=== PATIENT | female | born 1940 | race Caucasian/White ===

== ENCOUNTER 2016-07-12 20:09 | Inpatient (IN) | payer OTHER ==
[~2016-07-12] VITALS: Ht 162.6 cm; Wt 113.7 kg
[~2016-07-12 20:09] MED LIST: ACTOS30 MG PO; ADVAIR 250/501 DISK IH; ADVAIR 500-501 EACH IH; ADVAIR 500/501 DISK IH; ALBUTEROL IH; ALBUTEROL17 GM IH; ATORVASTATIN CA40 MG PO; AVELOX400 MG PO; Advair HFA 115/21 IH; Advair HFA 230/21 IH; Ambien PO; BACTRIM,SEPT1 TABLET PO; BYSTOLIC5 MG PO; Bystolic PO; CARDIZEM CD120 MG PO; CARTIA XT120 MG PO; CARVEDILOL6.25 MG PO; CATAPRES0.2 MG PO; CELEBREX100 MG PO; CELEBREX200 MG PO; CELEBREX50 MG PO; CLONIDINE HCL0.2 MG PO; CRESTOR10 MG PO; CYMBALTA30 MG PO; CYMBALTA60 MG PO; Cardizem CD,Cartia X PO; Colace PO; Cymbalta PO; DILTIAZEM 24HR120 MG PO; DOCUSATE SODIU100 MG PO; DuoNeb IH; ECOTRIN325 MG PO; FERROUS SULFAT325 MG PO; FISH OIL SOFTG1 EACH PO; GABAPENTIN300 MG PO; GABAPENTIN600 MG PO; GABAPENTIN800 MG PO; GLUCOPHAGE XR,500 MG PO; GLUCOPHAGE500 MG PO; HYDROCHLOROTHIA50 MG PO; HYDROCODON-ACE1 EAC7 PO; JANUMET 50/11 TABLET PO; JANUMET PO; JANUMET XR 50-1 EAC1 PO; Januvia PO; KEFLEX500 MG PO; KOMBIGLYZE XR1 EAC2 PO; LASIX20 MG/2 ML IV; LEVALBUTER1.25 MG/0. IH; LIPITOR20 MG PO; LIPITOR40 MG PO; LORATADINE10 M2 PO; LOVENOX40 MG/0.4 SC; Levaquin PO; Lovenox SC; MEGA MULTI FOR1 EACH; MEGA MULTI FOR1 EACH PO; MEGA RED PO; METFORMIN HCL500 MG PO; METFORMIN HCL750 MG PO; MONISTAT VG; MULTIVITAMIN1 EAC1 PO; MULTIVITAMIN1 EAC2 PO; Maxipime IV; NEURONTIN300 MG PO; NEURONTIN800 MG PO; Neurontin PO; PERCOCET 10/1 TABLET PO; PRANDIN0.5 MG PO; PRILOSEC40 MG PO; PROAIR HFA8.5 GM IH; SINGULAIR10 MG PO; Singulair PO; TEKTURNA300 MG PO; THEOPHYLLINE A200 M1 PO; THERAGRAN1 TABLET PO; Theragran PO; VENTOLIN HFA18 GM IH; Vancomycin IV; XOPENEX HF200 INHALA IH; XOPENEX0.63 MG/3 IH; [UNRECOGNIZED DRUG - OTHER]; [UNRECOGNIZED DRUG - OTHER] PO; [UNRECOGNIZED DRUG - REMARK]; celeBREX PO; predniSONE PO
[2016-07-12 21:24] LABS: EOSINOPHIL (%) 1.4 % (0-5); EOSINOPHIL COUNT 0.2 K/uL (0-0.3); HEMATOCRIT 44.8 % (36.0-46.0); IMMATURE GRANULOCYTE (%) 0.2 % (0.0-0.7); IMMATURE GRANULOCYTE COUNT 0.3 K/uL; LYMPHOCYTE COUNT 1.9 K/uL (1.0-2.8); MCH 27.9 PG (29.0-34.0); MCHC 32.6 G/DL (30.0-36.0); MCV 85.7 FL (83-99); MEAN PLAT.VOLUME 9.3 uM^3 (9.5-12.4); MONOCYTE (%) 5.1 % (3-12); MONOCYTE COUNT 0.8 K/uL (0-0.8); NEUTROPHIL (%) 80.1 % (45-76); NEUTROPHIL COUNT 11.8 K/uL (1.8-6.4); PLATELET COUNT 337 K/uL (156-360); RBC DIS.WIDTH-CV 13.6 % (11.8-14.6); RBC DIS.WIDTH-SD 41.9 % (39-53); RED BLOOD COUNT 5.23 M/uL (3.80-5.20); WHITE BLOOD COUNT 14.8 K/uL (4.1-10.2)
[2016-07-12 21:40] LABS: CHLORIDE 104 mEq/L (99-109); POTASSIUM 4.2 mEq/L (3.7-5.4); SODIUM 141 mEq/L (136-147)
[2016-07-12 21:42] LABS: GLUCOSE 135 mg/dL (70-99)
[2016-07-12 21:43] LABS: ANION GAP 12 MEQ/L (2-14)
[2016-07-12 21:46] LABS: GFR ESTIMATE (CALCULATED) > 59 mL/min/; TROP-I INTERPRETATION NEGATIVE; TROPONIN-I < 0.01 ng/mL (0.0-0.30); UREA NITROGEN (BUN) 13 mg/dL (9-23)
[2016-07-12] MEDS ORDERED: ATORVASTATIN CA80 MG PO (23:44)
[2016-07-12] MEDS ORDERED: BYSTOLIC10 MG PO (23:45)
[2016-07-12] MEDS ORDERED: BREO ELLIPTA 21 EACH IH (23:46)
[2016-07-12] MEDS ORDERED: IRBESARTAN150 MG PO (23:46)
[2016-07-13] VITALS (7 sets, daily range): BP systolic 113–197; BP diastolic 53–95
[2016-07-13 06:40] LABS: POINT-OF-CARE METER ID UU13113717
[2016-07-13 17:02] LABS: POINT-OF-CARE METER ID UU13113717
[2016-07-14 04:08] VITALS: BP 122/56
[2016-07-14 06:11] LABS: EOSINOPHIL (%) 0 % (0-5); IMMATURE GRANULOCYTE (%) 0.3 % (0.0-0.7); LYMPHOCYTE COUNT 0.9 K/uL (1.0-2.8); MCH 27.8 PG (29.0-34.0); MCHC 31.6 G/DL (30.0-36.0); MCV 87.9 FL (83-99); MONOCYTE (%) 1.7 % (3-12); MONOCYTE COUNT 0.2 K/uL (0-0.8); NEUTROPHIL (%) 91.2 % (45-76); NEUTROPHIL COUNT 11.8 K/uL (1.8-6.4); PLATELET COUNT 284 K/uL (156-360); RBC DIS.WIDTH-SD 44.6 % (39-53); RED BLOOD COUNT 4.21 M/uL (3.80-5.20)
[2016-07-14 06:15] LABS: ANION GAP 10 MEQ/L (2-14); CHLORIDE 103 MEQ/L (99-109); GFR ESTIMATE (CALCULATED) > 59 mL/min/; GLUCOSE 139 mg/dL (70-99); POTASSIUM 4.5 MEQ/L (3.7-5.4); SAMPLE HEMOLYSIS CHECK 0; SAMPLE ICTERIC CHECK 0; SAMPLE LIPEMIA CHECK 0; SODIUM 139 MEQ/L (136-147)
[2016-07-14 06:19] LABS: UREA NITROGEN (BUN) 24 mg/dL (9-23)
[2016-07-14 07:34] VITALS: BP 121/58
[2016-07-14 11:35] VITALS: BP 153/68
[2016-07-14 11:55] LABS: POINT-OF-CARE METER ID UU14149397
[2016-07-14 15:24] LABS: ADD MIUA? NO; BILIRUBIN NEGATIVE; BLOOD NEGATIVE; COLOR YELLOW ((YELLOW)); GLUCOSE (STRIP) NEGATIVE; KETONES TRACE; LEUKOCYTES NEGATIVE; NITRITE NEGATIVE; PH, URINE 5.5 (5-8); PROTEIN (STRIP) NEGATIVE; SPECIFIC GRAVITY 1.027 (1.000-1.030); UROBILINOGEN 0.2 MG/DL (0.2-1.0)
[2016-07-14 16:52] VITALS: BP 141/72
[2016-07-14 19:18] VITALS: BP 122/57
[2016-07-15] VITALS (7 sets, daily range): BP systolic 127–183; BP diastolic 60–86
[2016-07-15 05:32] LABS: ANION GAP 11 MEQ/L (2-14); CHLORIDE 101 MEQ/L (99-109); GFR ESTIMATE (CALCULATED) > 59 mL/min/; GLUCOSE 144 mg/dL (70-99); POTASSIUM 5.3 MEQ/L (3.7-5.4); SAMPLE HEMOLYSIS CHECK 0; SAMPLE ICTERIC CHECK 0; SAMPLE LIPEMIA CHECK 0; SODIUM 138 MEQ/L (136-147); UREA NITROGEN (BUN) 33 mg/dL (9-23)
[2016-07-15 06:17] LABS: HEMATOCRIT 38.6 % (36.0-46.0); MCH 26.7 PG (29.0-34.0); MCHC 30.3 G/DL (30.0-36.0); MCV 88.1 FL (83-99); MEAN PLAT.VOLUME 10.1 uM^3 (9.5-12.4); PLATELET COUNT 313 K/uL (156-360); RBC DIS.WIDTH-CV 13.9 % (11.8-14.6); RBC DIS.WIDTH-SD 44.7 % (39-53); RED BLOOD COUNT 4.38 M/uL (3.80-5.20)
[2016-07-15 06:21] LABS: WHITE BLOOD COUNT 17.4 K/uL (4.1-10.2)
[2016-07-16 04:17] VITALS: BP 142/76
[2016-07-16 05:58] LABS: HEMATOCRIT 42.3 % (36.0-46.0); MCH 27.8 PG (29.0-34.0); MCHC 31.4 G/DL (30.0-36.0); MCV 88.3 FL (83-99); MEAN PLAT.VOLUME 10.3 uM^3 (9.5-12.4); PLATELET COUNT 327 K/uL (156-360); RBC DIS.WIDTH-CV 14.1 % (11.8-14.6); RBC DIS.WIDTH-SD 45.5 % (39-53); RED BLOOD COUNT 4.79 M/uL (3.80-5.20); WHITE BLOOD COUNT 13.9 K/uL (4.1-10.2)
[2016-07-16 06:21] LABS: ANION GAP 7 MEQ/L (2-14); CHLORIDE 103 MEQ/L (99-109); GFR ESTIMATE (CALCULATED) > 59 mL/min/; GLUCOSE 125 mg/dL (70-99); POTASSIUM 4.4 MEQ/L (3.7-5.4); SAMPLE HEMOLYSIS CHECK 0; SAMPLE ICTERIC CHECK 0; SAMPLE LIPEMIA CHECK 0; SODIUM 140 MEQ/L (136-147); UREA NITROGEN (BUN) 30 mg/dL (9-23)
[2016-07-16 08:28] VITALS: BP 142/68
[2016-07-16 12:10] VITALS: BP 139/83
[2016-07-16 12:23] LABS: POINT-OF-CARE METER ID UU14149397
[2016-07-16 16:06] VITALS: BP 139/67
[2016-07-16 18:16] LABS: POINT-OF-CARE METER ID UU14149397
[2016-07-16 19:26] VITALS: BP 160/81
[2016-07-16 23:46] VITALS: BP 164/78
[2016-07-17 00:12] LABS: POINT-OF-CARE METER ID UU14149397
[2016-07-17 03:41] VITALS: BP 138/84
[2016-07-17 05:36] LABS: HEMATOCRIT 39.8 % (36.0-46.0); MCH 27.2 PG (29.0-34.0); MCHC 30.9 G/DL (30.0-36.0); MCV 87.9 FL (83-99); MEAN PLAT.VOLUME 10.4 uM^3 (9.5-12.4); PLATELET COUNT 314 K/uL (156-360); RBC DIS.WIDTH-SD 44.5 % (39-53); RED BLOOD COUNT 4.53 M/uL (3.80-5.20)
[2016-07-17 05:37] LABS: WHITE BLOOD COUNT 9.7 K/uL (4.1-10.2)
[2016-07-17 06:23] LABS: ANION GAP 6 MEQ/L (2-14); CHLORIDE 103 MEQ/L (99-109); GFR ESTIMATE (CALCULATED) > 59 mL/min/; GLUCOSE 123 mg/dL (70-99); POTASSIUM 4.8 MEQ/L (3.7-5.4); SAMPLE HEMOLYSIS CHECK 0; SAMPLE ICTERIC CHECK 0; SAMPLE LIPEMIA CHECK 0; SODIUM 140 MEQ/L (136-147); UREA NITROGEN (BUN) 23 mg/dL (9-23)
[2016-07-17 06:28] LABS: POINT-OF-CARE METER ID UU14149397
[2016-07-17 08:02] VITALS: BP 168/84
[2016-07-17] MEDS ORDERED: CEFTIN500 MG PO (11:08)
[2016-07-17] MEDS ORDERED: PREDNISONE10 MG PO (11:08)
[2016-07-17 11:26] VITALS: BP 160/78
[2016-07-17 16:47] VITALS: BP 178/88
[2016-07-17 18:56] LABS: POINT-OF-CARE METER ID UU14149397
[2016-07-17 20:00] VITALS: BP 157/74
[2016-07-17 20:24] LABS: POINT-OF-CARE METER ID UU14149397
[2016-07-18 00:35] VITALS: BP 154/76
[2016-07-18 00:44] LABS: POINT-OF-CARE METER ID UU14149397
[2016-07-18 03:51] VITALS: BP 158/80
[2016-07-18 06:01] LABS: POINT-OF-CARE METER ID UU14149397
[2016-07-18 08:51] VITALS: BP 176/79
[2016-07-18 11:00] VITALS: BP 140/80
[2016-07-18 11:47] LABS: POINT-OF-CARE METER ID UU13113717
[2016-07-18] MEDS ORDERED: AMLODIPINE BESY10 MG PO (11:55)
== END 2016-07-18 16:29 | disposition home or self-care (01) | DRG 193 ==
LOC: EME 20:09 → EDOF 07-13 01:15 → 3EAST 07-13 01:15
PROVIDERS: Emergency Medicine; Internal Medicine; Physician Assistant; Physician Assistant Medical; Student in an Organized Health Care Education/Training Program
DX: J18.9 Pneumonia, unspecified organism (principal); J96.01 Acute respiratory failure with hypoxia; I50.32 Chronic diastolic (congestive) heart failure; J45.901 Unspecified asthma with (acute) exacerbation; J44.1 Chronic obstructive pulmonary disease with (acute) exacerbation; K21.9 Gastro-esophageal reflux disease without esophagitis; G89.29 Other chronic pain; E78.5 Hyperlipidemia, unspecified; I10 Essential (primary) hypertension; R19.7 Diarrhea, unspecified; E11.9 Type 2 diabetes mellitus without complications; R33.9 Retention of urine, unspecified; F32.9 Major depressive disorder, single episode, unspecified; Z91.19 Patient's noncompliance with other medical treatment and regimen; Z88.0 Allergy status to penicillin; Z88.6 Allergy status to analgesic agent; Z88.8 Allergy status to other drugs, medicaments and biological substances; Z85.3 Personal history of malignant neoplasm of breast
CPT/HCPCS: 71010; 71020; 80048; 81003; 82948; 84484; 85025; 85027; 87070; 87086; 87205; 93005; 94640; 94640 76; 94760; 94799; 99202; 99281; 99285; J0360; J0456; J0692; J0696; J1644; J1815; J2920; J2930; J3010; J7030; J7050; J7120; J7512; J7644

== ENCOUNTER 2017-02-04 12:15 | Emergency (ER) | payer OTHER ==
[~2017-02-04] VITALS: Ht 160 cm; Wt 97.8 kg
[~2017-02-04 12:15] MED LIST changes: +AMLODIPINE BESY10 MG PO; +ATORVASTATIN CA80 MG PO; +BREO ELLIPTA 21 EACH IH; +BYSTOLIC10 MG PO; +CEFTIN500 MG PO; +IRBESARTAN150 MG PO; +PREDNISONE10 MG PO
[2017-02-04 14:08] LABS: HEMATOCRIT 44.8 % (36.0-46.0); MCH 27.6 PG (29.0-34.0); MCHC 31.9 G/DL (30.0-36.0); MCV 86.3 FL (83-99); PLATELET COUNT 362 K/uL (156-360); RBC DIS.WIDTH-CV 13.2 % (11.8-14.6); RBC DIS.WIDTH-SD 41.4 % (39-53); RED BLOOD COUNT 5.19 M/uL (3.80-5.20); WHITE BLOOD COUNT 9.1 K/uL (4.1-10.2)
[2017-02-04 14:19] LABS: CHLORIDE 103 mEq/L (99-109); POTASSIUM 4.4 mEq/L (3.7-5.4); SODIUM 140 mEq/L (136-147)
[2017-02-04 14:21] LABS: GLUCOSE 102 mg/dL (70-99)
[2017-02-04 14:22] LABS: ANION GAP 9 MEQ/L (2-14)
[2017-02-04 14:24] LABS: ALKALINE PHOSPHATASE 72 IU/L (3-129)
[2017-02-04 14:25] LABS: GFR ESTIMATE (CALCULATED) > 59 mL/min/
[2017-02-04 14:26] LABS: UREA NITROGEN (BUN) 13 mg/dL (9-23)
[2017-02-04 15:06] LABS: CHLORIDE 106 mEq/L (99-109); POTASSIUM 4.9 mEq/L (3.7-5.4); SODIUM 142 mEq/L (136-147)
[2017-02-04 15:08] LABS: GLUCOSE 87 mg/dL (70-99)
[2017-02-04 15:09] LABS: ANION GAP 12 MEQ/L (2-14)
[2017-02-04 15:12] LABS: ALKALINE PHOSPHATASE 74 IU/L (3-129); GFR ESTIMATE (CALCULATED) > 59 mL/min/
[2017-02-04 15:13] LABS: UREA NITROGEN (BUN) 13 mg/dL (9-23)
[2017-02-04 15:15] LABS: LIPASE 14 U/L (1.0-51.0)
[2017-02-04 15:16] LABS: ADD MIUA? NO; BILIRUBIN NEGATIVE; BLOOD NEGATIVE; COLOR YELLOW ((YELLOW)); GLUCOSE (STRIP) NEGATIVE; KETONES NEGATIVE; LEUKOCYTES NEGATIVE; NITRITE NEGATIVE; PROTEIN (STRIP) NEGATIVE; SPECIFIC GRAVITY 1.023 (1.000-1.030); UCUL ADDED? NO; UROBILINOGEN 0.2 MG/DL (0.2-1.0)
[2017-02-04 15:18] LABS: TROP-I INTERPRETATION NEGATIVE; TROPONIN-I < 0.01 ng/mL (0.0-0.30)
[2017-02-04 17:46] VITALS: BP 150/75
== END 2017-02-04 18:07 | disposition home or self-care (01) ==
LOC: EME 12:15
PROVIDERS: Emergency Medicine
DX: R10.10 Upper abdominal pain, unspecified (principal); E78.5 Hyperlipidemia, unspecified; Z86.73 Personal history of transient ischemic attack (TIA), and cerebral infarction without residual deficits; Z85.3 Personal history of malignant neoplasm of breast; Z90.12 Acquired absence of left breast and nipple
CPT/HCPCS: 74177; 80053; 81003; 83690; 84484; 85027; 93005; 99281; 99285; J2270; J2405

== ENCOUNTER 2017-07-11 19:01 | Emergency (ER) | payer OTHER ==
[~2017-07-11] VITALS: Ht 162.6 cm; Wt 107.9 kg
[2017-07-11 19:41] LABS: BASOPHIL (%) 0.4 % (0-1); EOSINOPHIL (%) 1.5 % (0-5); EOSINOPHIL COUNT 0.1 K/uL (0-0.3); HEMATOCRIT 43.6 % (36.0-46.0); HEMOGLOBIN 13.8 G/DL (11.9-15.5); IMMATURE GRANULOCYTE (%) 0.2 % (0.0-0.7); LYMPHOCYTE (%) 23.3 % (15-42); LYMPHOCYTE COUNT 1.9 K/uL (1.0-2.8); MCHC 31.7 G/DL (30.0-36.0); MCV 88.6 FL (83-99); MONOCYTE (%) 7.9 % (3-12); MONOCYTE COUNT 0.6 K/uL (0-0.8); NEUTROPHIL (%) 66.7 % (45-76); NEUTROPHIL COUNT 5.4 K/uL (1.8-6.4); PLATELET COUNT 304 K/uL (156-360); RBC DIS.WIDTH-CV 13.4 % (11.8-14.6); RBC DIS.WIDTH-SD 43.8 % (39-53); RED BLOOD COUNT 4.92 M/uL (3.80-5.20); WHITE BLOOD COUNT 8.2 K/uL (4.1-10.2)
[2017-07-11 19:51] LABS: CHLORIDE 105 mEq/L (99-109); POTASSIUM 4.7 mEq/L (3.7-5.4); SODIUM 140 mEq/L (136-147)
[2017-07-11 19:53] LABS: GLUCOSE 99 mg/dL (70-99)
[2017-07-11 19:57] LABS: CREATININE 0.8 mg/dL (0.6-1.3); GFR ESTIMATE (CALCULATED) > 59 mL/min/; PTT 32.6 SEC (25-37)
[2017-07-11 19:58] LABS: UREA NITROGEN (BUN) 17 mg/dL (9-23)
[2017-07-11 20:05] LABS: TROP-I INTERPRETATION NEGATIVE; TROPONIN-I 0.02 ng/mL (0.0-0.30)
[2017-07-11] MEDS ORDERED: ZITHROMAX Z-PA250 MG PO (21:04)
[2017-07-11] MEDS ORDERED: ALBUTEROL2.5 MG/3 M IH (21:06)
[2017-07-11] MEDS ORDERED: PREDNISONE20 MG PO (21:06)
[2017-07-11] MEDS ORDERED: VENTOLIN HFA18 GM IH (21:06)
[2017-07-11 21:34] VITALS: BP 140/81
== END 2017-07-11 21:35 | disposition home or self-care (01) ==
LOC: EME 19:01
PROVIDERS: Emergency Medicine
DX: J44.1 Chronic obstructive pulmonary disease with (acute) exacerbation (principal); E78.5 Hyperlipidemia, unspecified; Z86.73 Personal history of transient ischemic attack (TIA), and cerebral infarction without residual deficits; Z85.3 Personal history of malignant neoplasm of breast; Z90.12 Acquired absence of left breast and nipple; Z90.710 Acquired absence of both cervix and uterus; Z98.1 Arthrodesis status; Z88.0 Allergy status to penicillin; Z88.6 Allergy status to analgesic agent; Z88.8 Allergy status to other drugs, medicaments and biological substances
CPT/HCPCS: 71046; 80048; 84484; 85025; 85610; 85730; 93005; 94640; 99281; 99284; J7512